=== PATIENT | male | born 1965 | race Caucasian/White ===

== ENCOUNTER 2016-12-01 16:00 | Emergency (ER) | payer BC ==
[~2016-12-01] VITALS: Ht 185.4 cm; Wt 77.0 kg
[~2016-12-01 16:00] MED LIST: CEPH500C3 PO; Z.0.NO CURRENT MEDS
[2016-12-01 16:23] VITALS: BP 198/88; PULSE 88; RESP 17; TEMP 98; O2SAT 98
[2016-12-01] MEDS ORDERED: SODIUM CHLORIDE 0.9% FLUSH 5 ML FLUSH IVF PRN (16:30)
[2016-12-01] MEDS ORDERED: HYDROmorphone HCL PF 1 MG/ML VIAL IVS ONE (16:30)
[2016-12-01] MEDS ORDERED: ONDANSETRON HCL 4 MG/2 ML VIAL IVP ONE (16:30)
[2016-12-01 16:38] VITALS: O2SAT 98
--- NOTE | 2016-12-01 16:39 | PD ---
HPI Chief Complaint: Fall Time Seen by Provider: 16:16 Travel History International Travel<30 days: No Contact w/Intl Traveler<30days: No Traveled to known affect area: No History of Present Illness HPI This patient was working atop a ladder approximately 8 foot up when he over balanced and fell. He hit the ground with his right side. Complains of severe right sided rib pain. Worse with movement. Duration 1 hour. No alleviating factors. He did not have any loss of consciousness. He has no head or neck pain. Denies injury to arms or legs. Patient drinks approximately 8 alcoholic drinks daily and admits to drinking approximately 5 drinks today. Other than marijuana denies illicit drug use. He has chronic orthopedic pains but no other diagnosed health problems PFSH Past Medical History Musculoskeletal: Yes (HERNIATED DISC THORACIC SPINE, BONE SPURS) Neurologic: Yes (HEAD INJURY S/P FALLING OFF ROOF) Tetanus Vaccination: > 5 Years Influenza Vaccination: No Past Surgical History Other Surgery: Yes Social History Alcohol Use: Yes ("COUPLE OF BEERS PER DAY" PER PT) Tobacco Use: Yes (2 PPD) Substance Use: Yes (WEED) Allergies-Medications (Allergen,Severity, Reaction): Coded Allergies: Morphine (Verified Adverse Reaction, Severe, Nausea/Vomiting, 12/01/16) Reported Meds & Prescriptions Reported Meds & Active Scripts Active No Active Prescriptions or Reported Medications Review of Systems General / Constitutional: No: Fever Eyes: No: Visual changes HENT: No: Headaches Cardiovascular: Positive: Chest Pain or Discomfort Respiratory: No: Shortness of Breath Gastrointestinal: No: Abdominal Pain Genitourinary: No: Dysuria Musculoskeletal: Positive: Pain Skin: No Rash Neurologic: No: Weakness Psychiatric: No: Depression Endocrine: No: Polydipsia Hematologic/Lymphatic: No: Easy Bruising Physical Exam Narrative GENERAL: Well-nourished, well-developed patient in no apparent distress. SKIN: Warm and dry. HEAD: Atraumatic. Normocephalic. EYES: Pupils equal and round. No scleral icterus. No injection or drainage. ENT: No nasal bleeding or discharge. Mucous membranes pink and moist. NECK: Trachea midline. No JVD. No midline tenderness. CARDIOVASCULAR: Regular rate and rhythm. No murmur appreciated. RESPIRATORY: No accessory muscle use. Clear to auscultation. Breath sounds equal bilaterally. GASTROINTESTINAL: Abdomen soft, non-tender, nondistended. Hepatic and splenic margins not palpable. MUSCULOSKELETAL: No obvious deformities. No clubbing. No cyanosis. No edema. No midline tenderness of the back. He has a large abrasion to the right side and posterior back. There is tenderness there but no paradoxical rib movement. NEUROLOGICAL: Awake and alert. No obvious cranial nerve deficits. Motor grossly within normal limits. Normal speech. PSYCHIATRIC: Appropriate mood and affect; insight and judgment normal. Data Data Last Documented VS Vital Signs Date Time Temp Pulse Resp B/P Pulse Ox O2 Delivery O2 Flow Rate FiO2 12/01/16 17:49 79 16 141/88 97 Room Air 12/01/16 16:23 98.0 Orders Basic Metabolic Panel (Bmp) (12/01/16 16:26) Complete Blood Count With Diff (12/01/16 16:26) Prothrombin Time / Inr (Pt) (12/01/16 16:26) Act Partial Throm Time (Ptt) (12/01/16 16:26) Chest, Single Ap (12/01/16 16:26) Pelvis, Ap Only (Routine) (12/01/16 16:26) Ct Abd/Pel W Iv Contrast(Rout) (12/01/16 16:26) Ct Thorax/ Chest W Iv Contrast (12/01/16 16:26) Iv Access Insert/Monitor (12/01/16 16:26) Ecg Monitoring (12/01/16 16:26) Oximetry (12/01/16 16:26) Oxygen Administration (12/01/16 16:26) Sodium Chloride 0.9% Flush (Ns Flush) (12/01/16 16:30) Ondansetron Inj (Zofran Inj) (12/01/16 16:30) Hydromorphone Pf Inj (Dilaudid Pf Inj) (12/01/16 16:30) Alcohol (Ethanol) (12/01/16 16:26) Labs Laboratory Tests Test 12/01/16 16:45 White Blood Count 8.5 TH/MM3 Red Blood Count 3.95 MIL/MM3 Hemoglobin 13.3 GM/DL Hematocrit 38.8 % Mean Corpuscular Volume 98.1 FL Mean Corpuscular Hemoglobin 33.6 PG Mean Corpuscular Hemoglobin 34.3 % Concent Red Cell Distribution Width 13.1 % Platelet Count 305 TH/MM3 Mean Platelet Volume 8.1 FL Neutrophils (%) (Auto) 61.7 % Lymphocytes (%) (Auto) 22.6 % Monocytes (%) (Auto) 11.3 % Eosinophils (%) (Auto) 2.4 % Basophils (%) (Auto) 2.0 % Neutrophils # (Auto) 5.2 TH/MM3 Lymphocytes # (Auto) 1.9 TH/MM3 Monocytes # (Auto) 1.0 TH/MM3 Eosinophils # (Auto) 0.2 TH/MM3 Basophils # (Auto) 0.2 TH/MM3 CBC Comment DIFF FINAL Differential Comment Prothrombin Time 10.3 SEC Prothromb Time International 0.9 RATIO Ratio Activated Partial 30.8 SEC Thromboplast Time Sodium Level 128 MEQ/L Potassium Level 4.0 MEQ/L Chloride Level 95 MEQ/L Carbon Dioxide Level 23.4 MEQ/L Anion Gap 10 MEQ/L Blood Urea Nitrogen 4 MG/DL Creatinine 0.69 MG/DL Estimat Glomerular Filtration 120 ML/MIN Rate Random Glucose 91 MG/DL Calcium Level 8.2 MG/DL Ethyl Alcohol Level 280 MG/DL [facility] Medical Decision Making Medical Screen Exam Complete: Yes Emergency Medical Condition: Yes Medical Record Reviewed: Yes Differential Diagnosis Rib fracture, pneumothorax, hemothorax, liver laceration Narrative Course I have reviewed the patient's electronic medical record. IV placed Patient is critically ill based on high potential for severe injury such as hemopneumothorax or liver laceration He has severe pain I gave him a dose of IV Dilaudid and IV Zofran He is hypertensive on arrival and not meeting trauma alert criteria at this time CBC is normal Metabolic profile is normal Coagulation studies are normal Alcohol level is elevated at 280 suggesting acute intoxication I reviewed his chest x-ray which shows a posterior right eighth through fracture without pneumothorax I reviewed his pelvis x-ray which is normal CT of chest with IV contrast is pending CT of abdomen and pelvis with IV contrast is pending I will ask Dr. Liang to review the results of the CAT scans to make sure there is no emergent findings and assist with final disposition. Critical Care Narrative Aggregate critical care time was 35 minutes. Time to perform other separately billable procedures was not included in the critical care time. My time did not include minutes spent treating any other patients simultaneously or on activities that did not directly contribute to the patient's treatment. The services I provided to this patient were to treat and/or prevent clinically significant deterioration that could result in: Hemorrhagic shock, tension pneumothorax, cardiopulmonary arrest I provided critical care services requiring my management, as noted below: Chart data review, documentation time, medication orders and management, vital sign assessments/reviewing monitor data, ordering and reviewing lab tests, ordering and interpreting/reviewing x-rays and diagnostic studies, care of the patient and discussion of the patient with the admitting physicians. Scripts No Active Prescriptions or Reported Meds Crescencio Poon MD Dec 01, 2016 16:39
--- NOTE | 2016-12-01 16:50 | RADHPO ---
EXAM DATE/TIME: 12/01/2016 16:40 [facility] COMPARISON: PELVIS AP ONLY, December 01, 2016, 16:40. INDICATIONS : Right chest pain post fall off ladder. MEDICAL HISTORY : None. SURGICAL HISTORY : None. ENCOUNTER: Initial ACUITY: 1 day PAIN SCORE: 8/10 LOCATION: Right chest FINDINGS: A single view of the chest demonstrates the lungs to be symmetrically aerated without evidence of mas s, infiltrate or effusion. The cardiomediastinal contours are unremarkable. Osseous structures demon strate fracture of the right posterior eighth rib. CONCLUSION: 1. Fracture of the right posterior eighth rib. No pneumothorax identified. Timothy Walters MD on December 01, 2016 at 16:46 Board Certified Radiologist. This report was verified electronically.
--- NOTE | 2016-12-01 16:52 | RADHPO ---
EXAM DATE/TIME: 12/01/2016 16:40 [facility] COMPARISON: None. INDICATIONS : Pelvic pain post fall off ladder. MEDICAL HISTORY : None. SURGICAL HISTORY : None. ENCOUNTER: Initial ACUITY: 1 day PAIN SCORE: 8/10 LOCATION: Bilateral pelvis FINDINGS: A single frontal view of the pelvis demonstrates no evidence of fracture. The bony pelvic ring is in tact. Bony mineralization is normal. The soft tissues are intact. CONCLUSION: No acute osseous injury. Tevin Hutton MD Board Certified Radiologist. This report was verified electronically.
[2016-12-01 17:06] LABS: AUTOMATED NEUTROPHIL # 5.2 TH/MM3 (1.8-7.7); BASOPHIL # 0.2 TH/MM3 (0-0.2); EOSINOPHIL # 0.2 TH/MM3 (0-0.4); EOSINOPHIL % 2.4 % (0.0-4.0); HEMATOCRIT 38.8 % (39.0-51.0); HEMO FLAGS DIFF FINAL; LYMPH % 22.6 % (9.0-44.0); LYMPHOCYTE # 1.9 TH/MM3 (1.0-4.8); MEAN CELL VOLUME 98.1 FL (80.0-100.0); MEAN CORPUSCULAR HEMOGLOBIN 33.6 PG (27.0-34.0); MEAN CORPUSCULAR HGB CONC 34.3 % (32.0-36.0); MONO % 11.3 % (0.0-8.0); NEUT % 61.7 % (16.0-70.0); PLATELET COUNT 305 TH/MM3 (150-450); RED BLOOD COUNT 3.95 MIL/MM3 (4.50-5.90); RED CELL DISTRIBUTION WIDTH 13.1 % (11.6-17.2); WHITE BLOOD COUNT 8.5 TH/MM3 (4.0-11.0)
[2016-12-01 17:25] LABS: BICARBONATE 23.4 MEQ/L (21.0-32.0)
[2016-12-01 17:28] LABS: APTT (PATIENT) 30.8 SEC (24.3-30.1); INTERNATIONAL NORMALIZED RATIO 0.9 RATIO; PROTHROMBIN TIME - PATIENT 10.3 SEC (9.8-11.6)
[2016-12-01 17:49] VITALS: BP 141/88; PULSE 79; RESP 16; O2SAT 97
[2016-12-01] MEDS ORDERED: IOHEXOL 350 MG/ML 10 ML VIAL (for RAD DIAG) IV ONE (17:58)
--- NOTE | 2016-12-01 19:07 | PD ---
Physical Exam Date Seen by Provider: Dec 01, 2016 Time Seen by Provider: 19:07 Narrative Accepted in transfer of care from Dr. Poon GENERAL: Well-developed well-nourished animated male in no acute distress no respiratory distress SKIN: Warm and dry. HEAD: Normocephalic. EYES: No scleral icterus. No injection or drainage. NECK: Supple, trachea midline. No JVD or lymphadenopathy. CARDIOVASCULAR: Regular rate and rhythm without murmurs, gallops, or rubs. RESPIRATORY: Breath sounds equal bilaterally. No accessory muscle use. GASTROINTESTINAL: Abdomen soft, non-tender, nondistended. MUSCULOSKELETAL: No cyanosis, or edema. Right upper back subscapular wall with superficial abrasion no ecchymosis mild tenderness to palpation. No flank tenderness to percussion or palpation bilaterally BACK: Nontender without obvious deformity. No CVA tenderness. Data Data Last Documented VS Vital Signs Date Time Temp Pulse Resp B/P Pulse Ox O2 Delivery O2 Flow Rate FiO2 12/01/16 19:30 98.6 85 18 134/81 98 Room Air Orders Basic Metabolic Panel (Bmp) (12/01/16 16:26) Complete Blood Count With Diff (12/01/16 16:26) Prothrombin Time / Inr (Pt) (12/01/16 16:26) Act Partial Throm Time (Ptt) (12/01/16 16:26) Chest, Single Ap (12/01/16 16:26) Pelvis, Ap Only (Routine) (12/01/16 16:26) Ct Abd/Pel W Iv Contrast(Rout) (12/01/16 16:26) Ct Thorax/ Chest W Iv Contrast (12/01/16 16:26) Iv Access Insert/Monitor (12/01/16 16:26) Ecg Monitoring (12/01/16 16:26) Oximetry (12/01/16 16:26) Oxygen Administration (12/01/16 16:26) Sodium Chloride 0.9% Flush (Ns Flush) (12/01/16 16:30) Ondansetron Inj (Zofran Inj) (12/01/16 16:30) Hydromorphone Pf Inj (Dilaudid Pf Inj) (12/01/16 16:30) Alcohol (Ethanol) (12/01/16 16:26) Urinalysis - C+S If Indicated (12/01/16 20:15) Labs Laboratory Tests Test 12/01/16 12/01/16 16:45 20:15 White Blood Count 8.5 TH/MM3 Red Blood Count 3.95 MIL/MM3 Hemoglobin 13.3 GM/DL Hematocrit 38.8 % Mean Corpuscular Volume 98.1 FL Mean Corpuscular Hemoglobin 33.6 PG Mean Corpuscular Hemoglobin 34.3 % Concent Red Cell Distribution Width 13.1 % Platelet Count 305 TH/MM3 Mean Platelet Volume 8.1 FL Neutrophils (%) (Auto) 61.7 % Lymphocytes (%) (Auto) 22.6 % Monocytes (%) (Auto) 11.3 % Eosinophils (%) (Auto) 2.4 % Basophils (%) (Auto) 2.0 % Neutrophils # (Auto) 5.2 TH/MM3 Lymphocytes # (Auto) 1.9 TH/MM3 Monocytes # (Auto) 1.0 TH/MM3 Eosinophils # (Auto) 0.2 TH/MM3 Basophils # (Auto) 0.2 TH/MM3 CBC Comment DIFF FINAL Differential Comment Prothrombin Time 10.3 SEC Prothromb Time International 0.9 RATIO Ratio Activated Partial 30.8 SEC Thromboplast Time Sodium Level 128 MEQ/L Potassium Level 4.0 MEQ/L Chloride Level 95 MEQ/L Carbon Dioxide Level 23.4 MEQ/L Anion Gap 10 MEQ/L Blood Urea Nitrogen 4 MG/DL Creatinine 0.69 MG/DL Estimat Glomerular Filtration 120 ML/MIN Rate Random Glucose 91 MG/DL Calcium Level 8.2 MG/DL Ethyl Alcohol Level 280 MG/DL Urine pH 5.0 Urine Protein NEG mg/dL Urine Glucose (UA) NEG mg/dL Urine Ketones NEG mg/dL Urine Occult Blood TRACE Urine Nitrite NEG Urine Bilirubin NEG Urine Leukocyte Esterase NEG [facility] Medical Record Reviewed: Yes Supervised Visit with CAREY: No Interpretation(s) Last Impressions Pelvis X-Ray 12/01/161625 Signed Impressions: Service Date/Time: Thursday, December 01, 2016 16:40 - CONCLUSION: No acute osseous injury. Tevin Hutton MD Chest X-Ray 12/01/161625 Signed Impressions: Service Date/Time: Thursday, December 01, 2016 16:40 - CONCLUSION: 1. Fracture of the right posterior eighth rib. No pneumothorax identified. Timothy Walters MD Chest CT 12/01/166 Signed Impressions: Service Date/Time: Thursday, December 01, 2016 17:58 - CONCLUSION: 1. Acute fracture at the right eighth rib. 2. Compression deformity at the superior aspect of the T8 vertebral body. The age of this deformity is not clearly known. 3. Minimal suspected areas of atelectasis or contusion in the right lung. Shen Krishnamurthy MD CT abd/pel w/ iv contrast: CONCLUSION: 1. Minimal perinephric stranding on the left side. This could be from prior inflammatory response. Some minimal contusion could have a similar appearance. Active extravasation is not seen. 2. Fatty infiltration of the liver. Shen Krishnamurthy MD on December 01, 2016 at 19:32 Differential Diagnosis Please refer to Dr. Poon's dictation Narrative Course Accepted in transfer of care from Dr. Poon for follow-up of pending CT's of the thorax and abd/pelvis and patient disposition; chest x-ray and pelvis x-ray imaging remarkable for fracture of the right posterior eighth rib without pneumothorax identified. CT thorax per reading radiologist identifies no pneumothorax minimal bony contusion on the right 50% height loss of the T8 vertebra age-indeterminate and as previously noted on chest x-ray fracture of the right eighth rib. This has been shared with the patient who reports that several years ago he had a similar fall off of a roof and sustained multiple injuries at that time including a fracture of his thoracic spine. Patient is aware of CT abdomen and pelvis results which show some left-sided perinephric stranding may be related to telemetry process versus contusion no active extravasation or abdominal or pelvic trauma related abnormality. Patient reexamined has no tenderness to percussion over the left flank. Patient 's case discussed in detail with on-call trauma surgeon. Trauma surgeon no indication for observation admission trauma admission patient can go home and follow-up with primary care provider. Patient desirous of being discharged to home. Patient aware that attempted was made to look up previous admission for early or trauma in 1996 with injury that included fracture of the back as well as skull fracture. Unable to locate this chart however patient states that he does believe the T8 vertebra was broken at that time. On reexamination palm shunt is nontender to direct palpation over the thoracic spine specifically the T8 vertebral body distribution. Physician Communication Physician Communication discussed patient hx, exam, XR's and CT's with trauma surgeon Dr Marroquin--no admission/no trauma admission Diagnosis Primary Impression: Right rib fracture Qualified Code: S22.31XA - Closed fracture of one rib of right side, initial encounter Additional Impressions: Pulmonary contusion Qualified Code: S27.321A - Contusion of right lung, initial encounter Contusion Qualified Code: S20.221A - Contusion of right back wall of thorax, initial encounter Thoracic vertebral fracture Qualified Code: S22.060S - Closed wedge compression fracture of eighth thoracic vertebra, sequela Alcohol ingestion Referrals: Primary Care Physician call for appointment [facility] for appointment Patient Instructions: General Instructions, Narcotic given in the ED Departure Forms: Tests/Procedures, Work Release Special Instructions: no work x 3 days; no lifting greater than #5 for 2 weeks Additional Instruction: Discontinue alcohol use; follow-up with [facility] for resources for discontinuation of alcohol use Do not climb any ladders or perform heavy physical labor x 2 weeks Take pain medication as prescribed as needed do NOT take pain medication with any other medications or narcotics ot alcohol; narcotic pain medication may cause drowsiness impair judgment delay reaction time increased risk for fall or constipation Take as tolerated ibuprofen/Advil/Motrin may use up to 600 mg as often as every 6-8 hours avoid use for greater than 3-5 days consecutively; may take with antacids or Zantac/Pepcid Return immediately to the nearest emergency department for sudden onset shortness of breath or chest pain after forceful sneeze, cough, twist movement, or laugh or for any concerns Increase fluid hydration Follow-up with your primary care provider call office in a.m. to schedule follow -up appointment No work 3 days no heavy lifting 2 weeks Med/Other Pt SpecificInfo: Prescription(s) given Scripts Ondansetron Odt (Zofran Odt)4 Mg Tab4 Mg SL Q6HR PRN (Nausea/Vomiting) #10 TAB Ref 0 Prov:Jennifer Liang MD 12/01/16 Hydrocodone-Acetaminophen (Lortab)5-325 Mg Tab1 Tab PO Q6H PRN (PAIN) #10 TAB Ref 0 Prov:Jennfier Liang MD 12/01/16 Disposition: 01 DISCHARGE HOME Condition: Stable Jennifer Liang H. MD Dec 01, 2016 19:07
--- NOTE | 2016-12-01 19:21 | RADHPO ---
EXAM DATE/TIME: 12/01/2016 17:58 [facility] COMPARISON: CHEST SINGLE AP, December 01, 2016, 16:40. INDICATIONS : Fall from ladder. Right sided chest and abdomen trauma. IV CONTRAST: 93 cc Omnipaque 350 (iohexol) IV ; Cumulative dose for multiple exams. RADIATION DOSE: 13.2 CTDIvol (mGy) ; Combined studies - Thorax/Abdomen/Pelvis MEDICAL HISTORY : None SURGICAL HISTORY : None. ENCOUNTER: Initial ACUITY: 1 day PAIN SCALE: 7/10 LOCATION: Right chest TECHNIQUE: Volumetric scanning of the chest was performed. Using automated exposure control and adjustment of t he mA and/or kV according to patient size, radiation dose was kept as low as reasonably achievable to obtain optimal diagnostic quality images. FINDINGS: LUNGS: There some minimal increased density at the right middle lobe and lateral right lower lobe likely rep resenting some minimal atelectasis or contusion. The left lung is clear. A pneumothorax is not seen. PLEURA: There is no pleural thickening or pleural effusion. MEDIASTINUM: The heart and great vessels demonstrate no acute abnormality. There is no mediastinal or hilar lymph adenopathy. AXILLAE: Within normal limits. No lymphadenopathy. SKELETAL: There is a compression deformity at the superior aspect the T8 vertebral body. It appears the anterio r aspect of the T8 vertebral body has loss at least half its original height. There is an acute fract ure at the posterior lateral right eighth rib. There is an old healed fracture deformity at the poste rior left 11th rib. MISCELLANEOUS: The patient is to have a CT of the abdomen and pelvis to follow.. CONCLUSION: 1. Acute fracture at the right eighth rib. 2. Compression deformity at the superior aspect of the T8 vertebral body. The age of this deformity i s not clearly known. 3. Minimal suspected areas of atelectasis or contusion in the right lung. Shen Krishnamurthy MD on December 01, 2016 at 19:12 Board Certified Radiologist. This report was verified electronically.
[2016-12-01 19:30] VITALS: BP 134/81; PULSE 85; RESP 18; TEMP 98.6; O2SAT 98
--- NOTE | 2016-12-01 19:48 | RADHPO ---
EXAM DATE/TIME: 12/01/2016 17:58 [facility] COMPARISON: No previous studies available for comparison. INDICATIONS : Fall from ladder. Right sided chest and abdomen trauma. IV CONTRAST: 93 cc Omnipaque 350 (iohexol) IV ; Cumulative dose for multiple exams. ORAL CONTRAST: No oral contrast ingested. RADIATION DOSE: 13.2 CTDIvol (mGy) ; Combined studies - Thorax/Abdomen/Pelvis MEDICAL HISTORY : None SURGICAL HISTORY : None. ENCOUNTER: Initial ACUITY: 1 day PAIN SCALE: 8/10 LOCATION: Right abdomen. TECHNIQUE: Volumetric scanning of the abdomen and pelvis was performed. Using automated exposure control and adjustment of the mA and/or kV according to patient size, radiation dose was kept as low as reasonably achievable to obtain optimal diagnostic quality images. FINDINGS: There is diffuse fatty infiltration of the liver. The spleen, pancreas and adrenal glan ds are normal. Both kidneys demonstrate normal enhancement. There is some mild perinephric strandin g seen around the left kidney. No stones are seen. Atherosclerotic calcifications are seen througho ut the arterial system but no aneurysm is seen. The bowel is unremarkable. The urinary bladder is d istended. Pelvic structures appear grossly intact. There is degenerative change in the lumbar spine . The bony structures in the abdomen and pelvis appear intact. Again noted is a fracture at the pos terior lateral right eighth rib. CONCLUSION: 1. Minimal perinephric stranding on the left side. This could be from prior inflammatory response. S ome minimal contusion could have a similar appearance. Active extravasation is not seen. 2. Fatty infiltration of the liver. Shen Krishnamurthy MD on December 01, 2016 at 19:32 Board Certified Radiologist. This report was verified electronically.
[2016-12-01 20:29] LABS: BLOOD, URINE TRACE (NEG); GLUCOSE,URINE NEG (NEG); KETONE, URINE NEG (NEG); NITRITE,URINE NEG (NEG)
[2016-12-01] MEDS ORDERED: HYDR-3533 PO (20:37)
[2016-12-01] MEDS ORDERED: ZOFR4TAB3 SL (20:37)
[2016-12-01 20:50] LABS: METHOD OF COLLECTION CLEAN CATCH
[2016-12-01 20:51] LABS: COMMENT (UR) CULT NOT INDICATED; CULTURE IF INDICATED CULT NOT INDICATED; URINE COLOR STRAW (YELLW/STRAW); WBC, URINE 0-2 /hpf (0-5)
[2016-12-01 21:09] VITALS: BP 150/84; TEMP 98
[2016-12-28] MEDS ORDERED: GABA600T PO (15:09)
[2016-12-28] MEDS ORDERED: KETO60IN6 IM (15:09)
[2016-12-28] MEDS ORDERED: CYCL1TAB29 PO (15:09)
[2016-12-28] MEDS ORDERED: KETO10 PO (15:09)
[2017-01-29] MEDS ORDERED: CYCL1TAB29 PO (14:42)
[2017-01-29] MEDS ORDERED: GABA600T PO (14:42)
[2017-01-29] MEDS ORDERED: IBUP800T23 PO (14:42)
[2017-01-29] MEDS ORDERED: ASPI1TAB69 PO (14:53)
[2017-01-31] MEDS ORDERED: RANI150C PO (10:31)
[2017-03-01] MEDS ORDERED: IBUP800T23 PO (09:20)
[2017-03-01] MEDS ORDERED: GABA600T PO (09:20)
[2017-03-01] MEDS ORDERED: CHLO25TA2 PO ×2 (09:28→09:33)
[2017-03-01] MEDS ORDERED: LISI40TA PO ×2 (09:28→09:33)
[2017-04-04] MEDS ORDERED: AMLO10TA2 PO (09:48)
[2017-04-04] MEDS ORDERED: TRAM50TA PO (09:49)
== END 2016-12-01 21:21 | disposition home or self-care (01) ==
LOC: PHED 16:00
DX: S22.31XA Fracture of one rib, right side, initial encounter for closed fracture (principal); S27.321A Contusion of lung, unilateral, initial encounter; S20.221A Contusion of right back wall of thorax, initial encounter; S22.060S Wedge compression fracture of T7-T8 vertebra, sequela; F17.200 Nicotine dependence, unspecified, uncomplicated; Z72.89 Other problems related to lifestyle; Z87.39 Personal history of other diseases of the musculoskeletal system and connective tissue; Z86.69 Personal history of other diseases of the nervous system and sense organs; W11.XXXA Fall on and from ladder, initial encounter; W13.2XXS Fall from, out of or through roof, sequela
CPT/HCPCS: 71010; 71260; 72170; 74177; 80048; 80320; 81001; 85025; 85610; 85730; 96374; 96375; 99291; J1170; J2405; L0150; Q9967